=== PATIENT | female | born 1940 | race Caucasian/White ===

== ENCOUNTER → 2016-11-16 19:14 | Outpatient (CLI) | payer MEDICARE, OTHER ==
[2009-10-01 07:19] VITALS: BMI 31.4
[~2016-11-16 19:14] MED LIST: CELEXA20 MG PO; HCTZ25 MG PO; HYDROCODONE-APA1 TAB PO; LEVOTHYROXINE50 MCG PO; LOTENSIN40 MG PO; MUPIROCIN22 GM TOPICAL; NAPROSYN500 MG PO; NORVASC10 MG PO; PRAVACHOL40 MG PO
[2016-11-28 16:03] VITALS: BMI 30.5
== END | disposition home or self-care (01) ==
LOC: D.LABREF 19:14
DX: M19.012 Primary osteoarthritis, left shoulder (principal); Z11.8 Encounter for screening for other infectious and parasitic diseases

== ENCOUNTER 2016-11-28 08:36 | Inpatient (IN) | payer MEDICARE, OTHER ==
[2016-11-25 11:38] LABS: ANION GAP 11.9 mmol/L (8-16); CALCIUM 9.6 mg/dL (8.5-10.1); CARBON DIOXIDE 28.6 mmol/L (21.0-32.0); POTASSIUM - SERUM 3.5 mmol/L (3.5-5.1)
[2016-11-25 11:50] LABS: APPEARANCE CLEAR (CLEAR); BILIRUBIN NEGATIVE (NEGATIVE); COLOR YELLOW (YELLOW); GLUCOSE NEGATIVE (NEGATIVE); KETONE NEGATIVE (NEGATIVE); LEUKOCYTE ESTERASE NEGATIVE (NEGATIVE); NITRITE NEGATIVE (NEGATIVE); PROTEIN NEGATIVE (NEGATIVE); SPECIFIC GRAVITY 1.025 (1.005-1.020); UROBILINOGEN NORMAL (NORMAL)
[2016-11-25 11:55] LABS: BASOPHILS 0.9 % (0.0-2.0); EOSINOPHILS 5.4 % (0-7); HEMATOCRIT 41.9 % (36.0-48.0); IMMATURE GRANULOCYTES 0.3 % (0-5); LYMPHOCYTES 30.2 % (15-50); MCH 28.9 pg (26.0-34.0); MCHC 33.4 g/dL (31.0-37.0); MCV 86.4 fL (80.0-100.0); MEAN PLATELET VOLUME 10.7 fL (7.4-10.4); MONOCYTES 9.5 % (2-11); NEUTROPHILS 53.7 % (40-80); PLATELET COUNT 237 10x3/uL (130-400); RBC 4.85 10x6/uL (4.00-5.40); RDW 15.7 % (11.5-14.5); WBC 6.9 10x3/uL (4.8-10.8)
[2016-11-25 12:18] LABS: INR 0.89 (0.85-1.17); PROTIME 11.8 SECONDS (11.6-15.0)
[~2016-11-28] VITALS: Ht 167.6 cm; Wt 85.9 kg
[2016-11-28] VITALS (12 sets, daily range): BP systolic 104–153; BP diastolic 56–99; Ht 167.6 cm; Wt 85.9 kg
[~2016-11-28 08:36] MED LIST changes: -HYDROCODONE-APA1 TAB PO
--- NOTE | 2016-11-28 12:33 | NUR ---
TRIMANO POSITIONER USED FOR TSA
--- NOTE | 2016-11-28 14:15 | NUR ---
PATIENT RECEIVED TO FLOOR FROM PACU VIA BED. RESPIRATIONS EVEN AND UNLABORED. WAKES EASY. VITAL SIGNS STABLE. SIDE RAISL UP X2. BED IN LOW POSITION. PRESENT. DRESSING TO LEFT SHOULDER CLEAN, DRY AND INTACT. ICE PACK AND SLING IN PLACE. SCDS ON BILATERALLY
--- NOTE | 2016-11-28 16:15 | NUR ---
PATIENT IN MID MANUEL POSITION RESTING WITH EYES CLOSED. RESPIRATIONS EVEN AND UNLABORED. SIDE RAILS UP X2. BED IN LOW POSITION. CALL LIGHT IN REACH. BED ALARM ON.
--- NOTE | 2016-11-28 17:39 | NUR ---
PATIENT C/O NAUSEA. ZOFRAN ADMINISTERED PER PRN ORDER. DENIES FURTHER NEEDS. SIDE RAILS UP X2. BED IN LOW POSITION. CALL LIGHT IN REACH.
--- NOTE | 2016-11-28 19:25 | NUR ---
RECIEVED SHIFT REPORT. PT IS LYING IN BED. ALERT AND ORIENTED AND ABLE TO VERBALIZE NEEDS. IV IS PATENT AND FLUIDS ARE RUNNING PER ORDER. O2 @ 2 PER NASAL CANNULA. SCD'S ON. DRESSING TO LEFT SHOULDER C/D/I. SLING ON. BLOCK SITE C/D/I. PT IS AMBULATORY WITH ASSISTANCE. PT DENIES ANY PAIN AT THIS TIME. NO NEEDS ARE VERBALIZED AT THIS TIME. WILL CONTINUE TO MONITOR. SIDE RAILS ARE UP X 2. BED IS IN LOWEST POSITION. BED ALARM IS ON FOR SAFETY. CALL LIGHT IS WITHIN REACH.
--- NOTE | 2016-11-28 20:45 | NUR ---
SHIFT ASSESSMENT COMPLETED. NIGHT MEDS GIVEN WITH NO PROBLEMS. PT DENIED NEEDS. WILL MONITOR. SIDE RAILS X 2. BED LOW. BED ALARM ON. CALL LIGHT IN REACH.
[2016-11-29] VITALS: BP 128/70
[2016-11-29 04:00] VITALS: BP 130/66
--- NOTE | 2016-11-29 07:10 | NUR ---
PATIENT RECEIVED IN LOW MANUEL POSITION ALERT AND RESTING QUIETLY. RESPIRATIONS EVEN AND UNLABORED. SIDE RAILS UP X2. BED IN LOW POSITION. CALL LIGHT IN REACH. DENIES PAIN AND OTHER NEEDS.
--- NOTE | 2016-11-29 08:22 | NUR ---
REPOSITIONED IN BED. NO SIGNS OF DISTRESS NOTED. SCHEDULED MEDICATION ADMINISTERED. SIDE RAILS UP X2. BED IN LOW POSITION. CALL LIGHT IN REACH.
[2016-11-29] MEDS ORDERED: HYDROCODONE-APA1 TAB PO (08:30)
[2016-11-29 08:33] VITALS: BP 153/81
--- NOTE | 2016-11-29 09:38 | NUR ---
PATIENT SITTING UP IN CHAIR AT BEDSIDE. C/O PAIN 01/11. 1 TAB NORCO ADMINISTERED PER PRN ORDER. CALL LIGHT IN REACH.
[2016-11-29 09:39] LABS: HEMOGLOBIN 13.3 g/dL (12-16)
--- NOTE | 2016-11-29 11:28 | NUR ---
Patient Name: OLIVER TOBIAS Admission Status: Elective Accout number: [id number] Admission Date: 11-28-2016 : 1941 Admission Diagnosis: Attending: KATIANA Current LOS: 1 Anticipated DC Date: 11-29-2016 Planned Disposition: Home Primary Insurance: MEDICARE A & B Discharge Planning Comments: CM MET WITH PATIENT AND SPOUSE (DON) REGARDING D/C NEEDS AND PLANS. PATIENT STATED HER SPOUSE WILL DRIVE HER HOME AT DISCHARGE. PATIENT HAS 2 STEPS W/O RAILS TO ENTER HOME AND NO STAIRS INSIDE. SPOUSE STATED HE WILL HELP PATIENT GET UP STEPS. PATIENT STATED SHE IS INDEPENDENT WITH HER CARE AND HAS A CANE AT HOME. PATIENTS PCP IS DR. CHOI AND PHARMACY IS [facility] AT [facility]. PATIENT REFUSED HOME HEALTH OR ANY OTHER NEEDS. CM WILL CONTINUE TO FOLLOW PATIENT WITH D/C NEEDS AND PLANS. PCP DR. CHOI ([facility] [phone] DON (SPOUSE) [phone] Hebrew Professor: Danette Sood Is the patient Alert and Oriented? Yes 0 * PCP DR. CHOI IN [facility] 0 * Pharmacy [address] 0 * Preadmission Environment Home with Family 0 * ADLs Independent 0 * Equipment Cane 0 * List name and contact numbers for known caregivers / representatives who currently or will assist patient after discharge: DON (SPOUSE) [phone] * Community resources currently utilized None 0 * Additional services required to return to the preadmission environment? Yes 0 * Can the patient safely return to the preadmission environment? Yes 0 * Has this patient been hospitalized within the prior 30 days at any hospital? No 0 Grand Total: 0
[2016-11-29 12:50] VITALS: BP 145/71
--- NOTE | 2016-11-29 13:35 | NUR ---
CM REASSESSMENT NOTE: PATIENT IS DISCHARGING HOME TODAY-SPOUSE AT BEDSIDE AND IS DRIVING PATIENT HOME. PATIENT DENIED HOME HEALTH AND HAD NO OTHER NEEDS FOR DISCHARGE. CM WILL CONTINUE TO FOLLOW PATIENT WITH D/C NEEDS AND PLANS.
--- NOTE | 2016-11-29 14:45 | NUR ---
IV TO RIGHT HAND D/C WITH CATH TIP INTACT. SITE COVERED WITH GAUZE AND BANDAID.
--- NOTE | 2016-11-29 15:30 | NUR ---
PATIENT D/C HOME WITH . TRANSFERRED DOWNSTAIRS VIA WHEELCHAIR WITH STAFF
--- NOTE | 2016-12-08 12:07 | OP ---
PATIENT NAME: OLIVER TOBIAS MEDICAL RECORD: [id number] :41 LOCATION:D[id number] ADMISSION DATE:11/28/16 SURGEON: IRMA MEHTA MD DATE OF OPERATION: 11/28/2016 PREOPERATIVE DIAGNOSIS: Degenerative arthritis of the left shoulder. POSTOPERATIVE DIAGNOSIS: Degenerative arthritis of the left shoulder. PROCEDURE: Left total shoulder arthroplasty. SURGEON: Irma Mehta MD. ANESTHESIA: General. INTRAOPERATIVE COMPLICATIONS: None. SUMMARY OF PATHOLOGIC FINDINGS: The patient had a proximal humeral deformity with fracture. This was consistent with the preoperative radiographs. INDICATIONS: This patient had a known severe varus deformity and had considered total shoulder arthroplasty; however, she has now fallen and sustained a fracture with intra-articular splitting and for this reason, she now presents for primary total shoulder versus reverse total shoulder. However, the primary total shoulder worked nicely using the fracture stem from the Tornier system. OPERATIVE SUMMARY IN DETAIL: After obtaining the appropriate preoperative orthopedic surgery consent as well as anesthetic consultation, evaluation and clearance, the patient was brought to the operating room and placed on the operating table in supine position. After general laryngeal mask was administered, the patient was placed in the beach chair position. All pressure points were well padded. She was held firmly to the operating table using the vacuum pack suction system. Left upper extremity and shoulder were prepped and draped in a routine sterile fashion. Deltopectoral incision was created, taken down to the level of the cephalic vein, which was identified and protected throughout the case. Clavipectoral fascia was gently incised. Conjoined tendon was gently retracted medially while the deltoid retractor was utilized to retract laterally. Fracture fragments were noted. The greater tuberosity and lesser tuberosity were controlled with #2 Ethibonds. These were then gently taken apart to reveal the fractured humeral head in its pieces. These were then removed and then taken to the back table for measurements. At this point, direct visualization of the glenoid was possible. Circumferential labrectomy was done around this severely arthritic glenoid. Sequential center-post reaming was followed by a preparation of the glenoid for the Tornier glenoid. The Tornier glenoid was cemented into place. All excess cement was removed. After the cement was allowed to harden, attention was turned to the proximal humerus. Serial and sequential reaming was done for the fracture stem. Appropriate measurements were taken. The fracture stem was then prepared. After preparation of the fracture stem with the posterior superior bone graft, this was cemented into place at approximately 30 degrees of retroversion. After the cement was allowed to harden, then the greater tuberosities were sutured both together in around the neck of the humeral head and then transosseous sutures were placed in conjunction with this into the humerus itself to hold the entire construct laterally. Having completed this, the wound was copiously irrigated. The deltopectoral incision was closed with #1 Vicryl followed by 2-0 Vicryl OPERATIVE REPORT [id number] OLIVER TOBIAS followed by skin marlon. Sterile dressings were applied. The patient was awakened, taken to recovery room in stable condition. All final needle and sponge counts were correct. TRANSINT:[id number] Voice Confirmation ID: [id number] DOCUMENT ID: [id number] JANINE LOWE, IRMA L[address] at 1207 CC: [id number] DICTATION DATE: 12/08/16 1000 DIRECTOR OF PLAYER PERSONNEL: 12/08/16 1133 DIS IN 11/29/16 [facility] [address] [place] [address]
== END 2016-11-29 15:42 | disposition home or self-care (01) | DRG 483 ==
LOC: D.SDCHOLD 08:36 → D.MS 08:36 → D.SDCHOLD 11:00 → D.MS 13:56
PROVIDERS: ADMIT Orthopaedic Surgery
PROC: 0RRK0JZ Replacement of Left Shoulder Joint with Synthetic Substitute, Open Approach (ICD-10-PCS; principal; 2016-11-28 11:00)
DX: M19.012 Primary osteoarthritis, left shoulder (principal)

== ENCOUNTER 2017-06-19 08:20 | Day surgery (SDC) | payer MEDICARE, OTHER ==
[~2017-06-19 08:20] MED LIST changes: +HYDROCODONE-APA1 TAB PO
[2017-06-19 09:08] LABS: HEMATOCRIT 43.6 % (36.0-48.0); HEMOGLOBIN 14.6 g/dL (12-16); MCHC 33.5 g/dL (31.0-37.0); MCV 89.5 fL (80.0-100.0); MEAN PLATELET VOLUME 10.6 fL (7.4-10.4); RBC 4.87 10x6/uL (4.00-5.40); RDW 13.8 % (11.5-14.5); WBC 5.3 10x3/uL (4.8-10.8)
[2017-06-19 09:19] VITALS: BP 144/74; BMI 30.7
--- NOTE | 2017-06-19 14:49 | OP ---
PATIENT NAME: OLIVER TOBIAS MEDICAL RECORD: [id number] :41 LOCATION:D.OPS ADMISSION DATE: SURGEON: IRMA MEHTA MD DATE OF OPERATION: 06/19/2017 PREOPERATIVE DIAGNOSES: 1. Degenerative joint disease of the right hip. 2. Medial epicondylitis of the right elbow. POSTOPERATIVE DIAGNOSES: 1. Degenerative joint disease of the right hip. 2. Medial epicondylitis of the right elbow. PROCEDURE: 1. Injection of the right hip under fluoroscopy. 2. Injection of the medial epicondyle. SURGEON: Irma Mehta MD ANESTHESIA: General. INTRAOPERATIVE COMPLICATIONS: None. SUMMARY OF PATHOLOGIC FINDINGS: Consistent with the preoperative radiographs, the patient does have DJD of the hip as well as the preoperative diagnosis of medial epicondylitis. OPERATIVE SUMMARY IN DETAIL: After obtaining the appropriate preoperative orthopedic surgery consent as well as anesthetic consultation, evaluation and clearance, the patient was brought to the operating room and placed on the operating table in supine position. After adequate TIVA anesthesia was administered, fluoroscopy was brought in and the right hip and elbow were prepped and draped in a routine sterile fashion. An 18-gauge needle was then placed into the right hip under fluoroscopic guidance. A small amount of Isovue was used to show correct positioning. Then, 7cc of 0.25% Marcaine with epinephrine and 40 mg of Depo-Medrol were injected into the hip. Having completed this, bandage was applied. Attention was turned to the medial aspect of the right elbow. The epicondyle was injected with approximately 5 cc of 0.25% Marcaine and 40 mg of Depo-Medrol. Sterile dressing was applied here. The patient was awakened and taken back to outpatient in stable condition. TRANSINT:[id number] Voice Confirmation ID: [id number] DOCUMENT ID: [id number] IRMA MEHTA MD at 1449 CC: [id number] DICTATION DATE: 06/19/17 1027 YARD MOTOR OPERATOR: 06/19/17 1152 [facility] 06/19/17 [place] [address]
== END 2017-06-19 12:12 | disposition home or self-care (01) ==
LOC: D.OPS 08:20 → D.PAN 10:45 → D.OPS 10:45 → D.PAN 11:00 → D.OPS 12:12
PROVIDERS: Anesthesiology
DX: M16.11 Unilateral primary osteoarthritis, right hip (principal); M77.01 Medial epicondylitis, right elbow; Z01.812 Encounter for preprocedural laboratory examination

== ENCOUNTER → 2021-01-07 10:35 | Outpatient (CLI) | payer MEDICARE, OTHER | END | disposition home or self-care (01) | LOC: D.CT 10:35 | PROVIDERS: ATTEND Clinical Nurse Specialist Family Health | DX: R19.00 Intra-abdominal and pelvic swelling, mass and lump, unspecified site (principal) ==

== ENCOUNTER → 2021-01-22 09:55 | Day surgery (SDC) | payer MEDICARE, OTHER | END | disposition home or self-care (01) | LOC: D.RAD 09:55 | PROVIDERS: ATTEND Clinical Nurse Specialist Family Health | DX: M16.11 Unilateral primary osteoarthritis, right hip (principal) ==